=== PATIENT | male | born 1960 | race Caucasian/White ===

== ENCOUNTER 2016-06-01 09:17 | Emergency (ER) | payer BC ==
[~2016-06-01 09:17] MED LIST: /PANT40TA; /PRAV20TA PO; ACET50TA PO; ATOR1TAB21 PO; BABY81CH; CRES20TA PO; DOCU10ELUD PO; GLIP10TA6 PO; GLIP5TAB2 PO; INSUDET SC; KEFL500C; LEVA500T; METF500T PO; MULTCAP PO; MULTLIQ7 PO; MULTTAB4 PO; NASA1SPR; PANCRELIPASE PO; ROPI1TAB PO; TYLE650T30 PO; VITA-130 PO
--- NOTE | 2016-06-01 10:35 | REP ---
Clinical: Trauma. Technique: Frontal view of the chest with multiple views of the right hemithorax. Findings: Frontal view of the chest demonstrates no acute cardiopulmonary process. Multiple views of the right hemithorax demonstrates no obvious acute rib fracture or pathology. Impression: Normal right rib series Signed by Tru Yi MD 06/01/2016 10:26 A
--- NOTE | 2016-06-01 10:47 | EDDOCDS ---
Nurse's Notes [facility] Name: Carlos Maxwell Age: 55 yrs Sex: Male : 1960 Arrival Date: 06/01/2016 Time: 09:17 Bed PR Private MD: Diane Vee DO Diagnosis: Contusion of right front wall of thorax Presentation: 06/01 09:23 Presenting complaint: Patient states: right lower rib pain after falling yesterday. po Denies hitting head. Adult Sepsis Screening: The patient does not have new or worsening altered mentation. Patient's respiratory rate is less than 22. Systolic blood pressure is greater than 100. Patient has a qSOFA score of 0- Negative Sepsis Screen. Suicide/Homicide risk assessment- the patient denies having any suicidal and/or homicidal ideations and does not present with any other emotional, behavioral or mental health complaints. Status: Patient is not a auto specialty services manager or dependent. Transition of care: patient was not received from another setting of care. 09:23 Acuity: FIDELIA Level 4 po 09:23 Method Of Arrival: Walkin/Carried/Asstd po Triage Assessment: 09:31 General: Appears in no apparent distress, Behavior is appropriate for age, cooperative, po pleasant. Pain: Location: right lateral anterior chest Pain currently is 2 out of 10 on a pain scale. At worst was 9 out of 10 on a pain scale. HIV screening NA for this visit Offered previously. Neurological: Level of Consciousness is awake, alert, Oriented to person, place, time. Respiratory: Airway is patent Respiratory effort is even, unlabored, Reports pain with respiration. Derm: Skin is pink, warm & dry. Musculoskeletal: Circulation, motion, and sensation intact. Historical: - Allergies: Celebrex (Hives); Epinephrine (hypotension); - Home Meds: 1. Vitamin C 100 mg Oral tab daily 2. aspirin 81 mg Oral tab 1 tab once daily 3. glipizide 10 mg Oral tab 1 tab once daily 4. Levemir 100 unit/mL subcutaneous soln 40 unit daily 5. multivitamin with minerals oral tab 1 tab daily 6. Protonix 40 mg Oral TbEC 1 tab once daily 7. Requip 1 mg Oral tab 1 tab nightly 8. Crestor 10 mg Oral tab 1 tab once daily 9. Nasacort 55 mcg/actuation Nasal aero 2 spray as needed 10. Pancrelipase 44968 Units 2 cap three times a day - PMHx: CAD; Diabetes - IDDM: controlled; Restlesss Leg Syndrome; - PSHx: Stents, Coronary; pericardial window; cyst removed from right testicle; Pancreojudectomy; - Social history: Smoking status: Patient uses tobacco products, light tobacco smoker. No barriers to communication noted, The patient speaks fluent Icelandic. - Family history: Not pertinent. - : The pt / caregiver states he / she is not on anticoagulants. Home medication list is obtained from the patient. - Exposure Risk Screening:: None identified. Screenin:44 Screening information is obtained from the patient. Fall risk: No risks identified. mlb1 Assistance ADL's: requires no assistance with activities of daily living. Abuse/DV Screen: The patient / caregiver reports he/she is: not in a situation that causes fear, pain or injury. Nutritional screening: No deficits noted. Advance Directives: Currently, there is no health care proxy. home support is adequate. Assessment: 10:44 General: Appears in no apparent distress, comfortable, Behavior is appropriate for age, mlb1 cooperative. Pain: Location: right lateral anterior chest Pain currently is 3 out of 10 on a pain scale. Respiratory: Airway is patent Respiratory effort is even, unlabored. Derm: No deficits noted. Vital Signs: 09:19 BP 128 / 85; Pulse 80; Resp 18; Temp 97.6(O); Pulse Ox 100% on R/A; Weight 63.5 kg (R); sar1 Height 5 ft. 9 in. (175.26 cm) (R); 10:45 BP 125 / 78; Pulse 62; Resp 16; Temp 97.6(TE); Pulse Ox 98% on R/A; Pain 3/10; mlb1 09:19 Body Mass Index 20.67 (63.50 kg, 175.26 cm) [facility] Vitals: 09:19 Log In Time: June 01, 2016 at 09:19. [facility] ED Course: 09:18 Patient visited by Melanie Lovell, Soils Analyst. sar1 09:18 Patient moved to Waiting sar1 09:19 Diane Vee is Private Physician. sar1 09:20 Patient moved to Pre RCE sar1 09:24 Triage Initiated po 09:31 Arm band placed on left wrist. Patient placed in waiting room. po 09:33 Patient visited by Hubert Espinal RN. po 09:52 Patient moved to Triage 1 mlb1 10:06 [facility]utherland [facility] cc10 10:06 Mojgan Puentes MD is Attending Physician. cc10 10:06 Patient visited by Eugenio Sutherland PA-C. cc10 10:06 Patient visited by Eugenio Sutherland PA-C. cc10 10:12 Patient moved to TR1 jml1 10:32 Patient moved to PR2 / 26 mlb1 10:33 [facility] Payment Agreement was scanned into [email or web address] and attached to record. jp5 10:36 Diane Vee is Referral Physician. cc10 10:45 No IV's were initiated during this patient's visit. No procedures done that require mlb1 assistance. 10:46 The patient / caregiver is instructed regarding the plan of care and ED course. mlb1 Order Results: There are currently no results for this order. Outcome: 10:36 Discharge ordered by Provider. cc10 10:45 Discharge Assessment: Patient awake, alert and oriented x 3. No cognitive and/or mlb1 functional deficits noted. Patient verbalized understanding of disposition instructions. patient administered narcotics - no. The following High Risk Discharge criteria are identified: None. Discharged to home ambulatory. Condition: good. Discharge instructions given to patient, Instructed on discharge instructions, follow up and referral plans. medication usage, no driving heavy equipment, Demonstrated understanding of instructions, medications, Pt was receptive of discharge instructions/ teaching. Prescriptions given X 1, Work note provided to patient. No special radiology studies were completed. Property sent home with patient. 10:46 Patient left the ED. mlb1 Signatures: Hubert Espinal,RN RN po Juan Jose Dickson RN RN mlb1 Rufino Cuevas jml1 Eugenio Sutherland PA-C PA-C cc10 Melanie Lovell, Soils Analyst Unit sar1 Lakshmi Irvin jp5 Corrections: (The following items were deleted from the chart) 09:33 09:31 Arm band placed on left wrist. Patient placed in exam room po po MTDD
--- NOTE | 2016-06-01 10:47 | EDDOCDS ---
Physician Documentation [facility] Name: Carlos Maxwell Age: 55 yrs Sex: Male : 1960 Arrival Date: 06/01/2016 Time: 09:17 Bed PR Private MD: Diane Vee DO Disposition: 06/01/16 10:36 Discharged to Home/Self Care. Impression: Contusion of right front wall of thorax. - Condition is Stable. - Discharge Instructions: Chest Contusion. - Prescriptions for Hydrocodone- Acetaminophen 5-325 mg Oral Tablet - take 1 tablet by ORAL route every 6 hours As needed MDD: 4 tabs; 14 tablet. - Medication Reconciliation, Work Release Form - 1 day, Local Pharmacy Hours form. - Follow up: Emergency Department; When: As needed; Reason: Worsening of conditions. Follow up: Diane Vee; When: Call to arrange an appointment; Reason: Wound/Symptom Recheck, Recheck today's complaints, Worsening of conditions, Continuance of care. - Problem is new. - Symptoms are unchanged. Historical: - Allergies: Celebrex (Hives); Epinephrine (hypotension); - Home Meds: 1. Vitamin C 100 mg Oral tab daily 2. aspirin 81 mg Oral tab 1 tab once daily 3. glipizide 10 mg Oral tab 1 tab once daily 4. Levemir 100 unit/mL subcutaneous soln 40 unit daily 5. multivitamin with minerals oral tab 1 tab daily 6. Protonix 40 mg Oral TbEC 1 tab once daily 7. Requip 1 mg Oral tab 1 tab nightly 8. Crestor 10 mg Oral tab 1 tab once daily 9. Nasacort 55 mcg/actuation Nasal aero 2 spray as needed 10. Pancrelipase 86100 Units 2 cap three times a day - PMHx: CAD; Diabetes - IDDM: controlled; Restlesss Leg Syndrome; - PSHx: Stents, Coronary; pericardial window; cyst removed from right testicle; Pancreojudectomy; - Social history: Smoking status: Patient uses tobacco products, light tobacco smoker. No barriers to communication noted, The patient speaks fluent Divehi. - Family history: Not pertinent. - : The pt / caregiver states he / she is not on anticoagulants. Home medication list is obtained from the patient. - Exposure Risk Screening:: None identified. Vital Signs: 06/01 09:19 BP 128 / 85; Pulse 80; Resp 18; Temp 97.6(O); Pulse Ox 100% on R/A; Weight 63.5 kg / sar1 139.99 lbs (R); Height 5 ft. 9 in. (175.26 cm) (R); 10:45 BP 125 / 78; Pulse 62; Resp 16; Temp 97.6(TE); Pulse Ox 98% on R/A; Pain 3/10; mlb1 09:19 Body Mass Index 20.67 (63.50 kg, 175.26 cm) sar1 MDM: 10:11 Rib Unilat W/PA Chest Only Ordered. EDMS 10:33 [facility] [place] Agreement was scanned into [employer] and attached to record. jp5 10:33 Financial registration complete. jp5 Signatures: Dispatcher [employer] EDMS Hubert Espinal,RN Juan Jose Grover RN RN mlb1 Eugenio Sutherland, PA-C PA-C cc10 Lakshmi Irvin jp5 The chart was reviewed and I authenticate all verbal orders and agree with the evaluation and treatment provided.Attachments: 10:33 [facility] [place] Agreement jp5 MTDD
--- NOTE | 2016-06-03 11:48 | EDDOCDS ---
Physician Documentation [facility] Name: Carlos Maxwell Age: 55 yrs Sex: Male : 1960 Arrival Date: 06/01/2016 Time: 09:17 Bed PR Private MD: Diane Vee DO Disposition: 06/01/16 10:36 Discharged to Home/Self Care. Impression: Contusion of right front wall of thorax. - Condition is Stable. - Discharge Instructions: Chest Contusion. - Prescriptions for Hydrocodone- Acetaminophen 5-325 mg Oral Tablet - take 1 tablet by ORAL route every 6 hours As needed MDD: 4 tabs; 14 tablet. - Medication Reconciliation, Work Release Form - 1 day, Local Pharmacy Hours form. - Follow up: Emergency Department; When: As needed; Reason: Worsening of conditions. Follow up: Diane Vee; When: Call to arrange an appointment; Reason: Wound/Symptom Recheck, Recheck today's complaints, Worsening of conditions, Continuance of care. - Problem is new. - Symptoms are unchanged. Historical: - Allergies: Celebrex (Hives); Epinephrine (hypotension); - Home Meds: 1. Vitamin C 100 mg Oral tab daily 2. aspirin 81 mg Oral tab 1 tab once daily 3. glipizide 10 mg Oral tab 1 tab once daily 4. Levemir 100 unit/mL subcutaneous soln 40 unit daily 5. multivitamin with minerals oral tab 1 tab daily 6. Protonix 40 mg Oral TbEC 1 tab once daily 7. Requip 1 mg Oral tab 1 tab nightly 8. Crestor 10 mg Oral tab 1 tab once daily 9. Nasacort 55 mcg/actuation Nasal aero 2 spray as needed 10. Pancrelipase 99816 Units 2 cap three times a day - PMHx: CAD; Diabetes - IDDM: controlled; Restlesss Leg Syndrome; - PSHx: Stents, Coronary; pericardial window; cyst removed from right testicle; Pancreojudectomy; - Social history: Smoking status: Patient uses tobacco products, light tobacco smoker. No barriers to communication noted, The patient speaks fluent Mongolian. - Family history: Not pertinent. - : The pt / caregiver states he / she is not on anticoagulants. Home medication list is obtained from the patient. - Exposure Risk Screening:: None identified. Vital Signs: 06/01 09:19 BP 128 / 85; Pulse 80; Resp 18; Temp 97.6(O); Pulse Ox 100% on R/A; Weight 63.5 kg / sar1 139.99 lbs (R); Height 5 ft. 9 in. (175.26 cm) (R); 10:45 BP 125 / 78; Pulse 62; Resp 16; Temp 97.6(TE); Pulse Ox 98% on R/A; Pain 3/10; mlb1 09:19 Body Mass Index 20.67 (63.50 kg, 175.26 cm) sar1 MDM: 10:11 Rib Unilat W/PA Chest Only Ordered. EDMS 10:33 [facility] [place] Payment Agreement was scanned into [employer] and attached to record. jp5 10:33 Financial registration complete. jp5 11:24 T-Sheet-- Draft Copy was scanned into [employer] and attached to record. se Signatures: Dispatcher [employer] EDMN Hubert Espinal,RN Juan Jose Grover RN RN mlb1 Eugenio Sutherland, PA-C PA-C cc10 Lakshmi Irvin [facility] Mojgan Horvath se The chart was reviewed and I authenticate all verbal orders and agree with the evaluation and treatment provided.Attachments: 10:33 [facility] Payment Agreement jp5 11:24 T-Sheet-- Draft Copy se Chart Complete MTDD
--- NOTE | 2016-06-03 11:48 | EDDOCDS ---
Nurse's Notes [facility] Name: Carlos Maxwell Age: 55 yrs Sex: Male : 1960 Arrival Date: 06/01/2016 Time: 09:17 Bed PR Private MD: Diane Vee DO Diagnosis: Contusion of right front wall of thorax Presentation: 06/01 09:23 Presenting complaint: Patient states: right lower rib pain after falling yesterday. po Denies hitting head. Adult Sepsis Screening: The patient does not have new or worsening altered mentation. Patient's respiratory rate is less than 22. Systolic blood pressure is greater than 100. Patient has a qSOFA score of 0- Negative Sepsis Screen. Suicide/Homicide risk assessment- the patient denies having any suicidal and/or homicidal ideations and does not present with any other emotional, behavioral or mental health complaints. Status: Patient is not a convention services director or dependent. Transition of care: patient was not received from another setting of care. 09:23 Acuity: FIDELIA Level 4 po 09:23 Method Of Arrival: Walkin/Carried/Asstd po Triage Assessment: 09:31 General: Appears in no apparent distress, Behavior is appropriate for age, cooperative, po pleasant. Pain: Location: right lateral anterior chest Pain currently is 2 out of 10 on a pain scale. At worst was 9 out of 10 on a pain scale. HIV screening NA for this visit Offered previously. Neurological: Level of Consciousness is awake, alert, Oriented to person, place, time. Respiratory: Airway is patent Respiratory effort is even, unlabored, Reports pain with respiration. Derm: Skin is pink, warm & dry. Musculoskeletal: Circulation, motion, and sensation intact. Historical: - Allergies: Celebrex (Hives); Epinephrine (hypotension); - Home Meds: 1. Vitamin C 100 mg Oral tab daily 2. aspirin 81 mg Oral tab 1 tab once daily 3. glipizide 10 mg Oral tab 1 tab once daily 4. Levemir 100 unit/mL subcutaneous soln 40 unit daily 5. multivitamin with minerals oral tab 1 tab daily 6. Protonix 40 mg Oral TbEC 1 tab once daily 7. Requip 1 mg Oral tab 1 tab nightly 8. Crestor 10 mg Oral tab 1 tab once daily 9. Nasacort 55 mcg/actuation Nasal aero 2 spray as needed 10. Pancrelipase 86584 Units 2 cap three times a day - PMHx: CAD; Diabetes - IDDM: controlled; Restlesss Leg Syndrome; - PSHx: Stents, Coronary; pericardial window; cyst removed from right testicle; Pancreojudectomy; - Social history: Smoking status: Patient uses tobacco products, light tobacco smoker. No barriers to communication noted, The patient speaks fluent Japanese. - Family history: Not pertinent. - : The pt / caregiver states he / she is not on anticoagulants. Home medication list is obtained from the patient. - Exposure Risk Screening:: None identified. Screenin:44 Screening information is obtained from the patient. Fall risk: No risks identified. mlb1 Assistance ADL's: requires no assistance with activities of daily living. Abuse/DV Screen: The patient / caregiver reports he/she is: not in a situation that causes fear, pain or injury. Nutritional screening: No deficits noted. Advance Directives: Currently, there is no health care proxy. home support is adequate. Assessment: 10:44 General: Appears in no apparent distress, comfortable, Behavior is appropriate for age, mlb1 cooperative. Pain: Location: right lateral anterior chest Pain currently is 3 out of 10 on a pain scale. Respiratory: Airway is patent Respiratory effort is even, unlabored. Derm: No deficits noted. Vital Signs: 09:19 BP 128 / 85; Pulse 80; Resp 18; Temp 97.6(O); Pulse Ox 100% on R/A; Weight 63.5 kg (R); sar1 Height 5 ft. 9 in. (175.26 cm) (R); 10:45 BP 125 / 78; Pulse 62; Resp 16; Temp 97.6(TE); Pulse Ox 98% on R/A; Pain 3/10; mlb1 09:19 Body Mass Index 20.67 (63.50 kg, 175.26 cm) [facility] Vitals: 09:19 Log In Time: June 01, 2016 at 09:19. [facility] ED Course: 09:18 Patient visited by Melanie Lovell, Tank Cooper. sar1 09:18 Patient moved to Waiting sar1 09:19 Diane Vee is Private Physician. sar1 09:20 Patient moved to Pre RCE sar1 09:24 Triage Initiated po 09:31 Arm band placed on left wrist. Patient placed in waiting room. po 09:33 Patient visited by Hubert Espinal RN. po 09:52 Patient moved to Triage 1 mlb1 10:06 Eugenio Sutherland PA-C is PHCP. cc10 10:06 Mojgan Puentes MD is Attending Physician. cc10 10:06 Patient visited by Eugenio Sutherland PA-C. cc10 10:06 Patient visited by Eugenio Sutherland PA-C. cc10 10:12 Patient moved to TR1 jml1 10:32 Patient moved to PR2 / 26 mlb1 10:33 [facility] Payment Agreement was scanned into [employer] and attached to record. jp5 10:36 Diane Vee is Referral Physician. cc10 10:45 No IV's were initiated during this patient's visit. No procedures done that require mlb1 assistance. 10:46 The patient / caregiver is instructed regarding the plan of care and ED course. mlb1 11:00 Rib Unilat W/PA Chest Only Returned. EDMS 11:24 T-Sheet-- Draft Copy was scanned into [employer] and attached to record. [facility] Order Results: Radiology Order: Rib Unilat W/PA Chest Only Test: Rib Unilat W/PA Chest Only REASON FOR EXAMINATION: Trauma; Clinical: Trauma.; ; Technique: Frontal view of the chest with multiple views of the right; hemithorax.; ; Findings:; Frontal view of the chest demonstrates no acute cardiopulmonary process.; Multiple views of the right hemithorax demonstrates no obvious acute rib fracture; or pathology.; ; Impression:; Normal right rib series; ; ; Signed by; Tru Yi MD 06/01/2016 10:26 A; Outcome: 10:36 Discharge ordered by Provider. cc10 10:45 Discharge Assessment: Patient awake, alert and oriented x 3. No cognitive and/or mlb1 functional deficits noted. Patient verbalized understanding of disposition instructions. patient administered narcotics - no. The following High Risk Discharge criteria are identified: None. Discharged to home ambulatory. Condition: good. Discharge instructions given to patient, Instructed on discharge instructions, follow up and referral plans. medication usage, no driving heavy equipment, Demonstrated understanding of instructions, medications, Pt was receptive of discharge instructions/ teaching. Prescriptions given X 1, Work note provided to patient. No special radiology studies were completed. Property sent home with patient. 10:46 Patient left the ED. mlb1 Signatures: Dispatcher [employer] Hubert Negron,RN RN po Juan Jose Dickson RN RN mlb1 Rufino Cuevas jml1 Eugenio Sutherland, FRANKY PALaylaC cc10 Melanie Lovell, Tank Cooper Unit sarLakshmi Christensen 5 Mojgan Horvath Corrections: (The following items were deleted from the chart) 09:33 09:31 Arm band placed on left wrist. Patient placed in exam room po po Chart Complete MTDD
--- NOTE | 2016-06-03 11:48 | EDDOCDS ---
Physician Documentation [facility] Name: Carlos Maxwell Age: 55 yrs Sex: Male : 1960 Arrival Date: 06/01/2016 Time: 09:17 Bed PR Private MD: Diane Vee DO Disposition: 06/01/16 10:36 Discharged to Home/Self Care. Impression: Contusion of right front wall of thorax. - Condition is Stable. - Discharge Instructions: Chest Contusion. - Prescriptions for Hydrocodone- Acetaminophen 5-325 mg Oral Tablet - take 1 tablet by ORAL route every 6 hours As needed MDD: 4 tabs; 14 tablet. - Medication Reconciliation, Work Release Form - 1 day, Local Pharmacy Hours form. - Follow up: Emergency Department; When: As needed; Reason: Worsening of conditions. Follow up: Diane Vee; When: Call to arrange an appointment; Reason: Wound/Symptom Recheck, Recheck today's complaints, Worsening of conditions, Continuance of care. - Problem is new. - Symptoms are unchanged. Historical: - Allergies: Celebrex (Hives); Epinephrine (hypotension); - Home Meds: 1. Vitamin C 100 mg Oral tab daily 2. aspirin 81 mg Oral tab 1 tab once daily 3. glipizide 10 mg Oral tab 1 tab once daily 4. Levemir 100 unit/mL subcutaneous soln 40 unit daily 5. multivitamin with minerals oral tab 1 tab daily 6. Protonix 40 mg Oral TbEC 1 tab once daily 7. Requip 1 mg Oral tab 1 tab nightly 8. Crestor 10 mg Oral tab 1 tab once daily 9. Nasacort 55 mcg/actuation Nasal aero 2 spray as needed 10. Pancrelipase 38095 Units 2 cap three times a day - PMHx: CAD; Diabetes - IDDM: controlled; Restlesss Leg Syndrome; - PSHx: Stents, Coronary; pericardial window; cyst removed from right testicle; Pancreojudectomy; - Social history: Smoking status: Patient uses tobacco products, light tobacco smoker. No barriers to communication noted, The patient speaks fluent Nepali. - Family history: Not pertinent. - : The pt / caregiver states he / she is not on anticoagulants. Home medication list is obtained from the patient. - Exposure Risk Screening:: None identified. Vital Signs: 06/01 09:19 BP 128 / 85; Pulse 80; Resp 18; Temp 97.6(O); Pulse Ox 100% on R/A; Weight 63.5 kg / sar1 139.99 lbs (R); Height 5 ft. 9 in. (175.26 cm) (R); 10:45 BP 125 / 78; Pulse 62; Resp 16; Temp 97.6(TE); Pulse Ox 98% on R/A; Pain 3/10; mlb1 09:19 Body Mass Index 20.67 (63.50 kg, 175.26 cm) sar1 MDM: 10:11 Rib Unilat W/PA Chest Only Ordered. EDMS 10:33 [facility] Payment Agreement was scanned into [employer] and attached to record. jp5 10:33 Financial registration complete. jp5 11:24 T-Sheet-- Draft Copy was scanned into [employer] and attached to record. se Signatures: Dispatcher [employer] EDMD Hubert Espinal,RN Juan Jose Grover RN RN mlb1 Eugenio Sutherland, PA-C PA-C cc10 Lakshmi Irvin [facility] Mojgan Horvath se The chart was reviewed and I authenticate all verbal orders and agree with the evaluation and treatment provided.Attachments: 10:33 [facility] Payment Agreement jp5 11:24 T-Sheet-- Draft Copy se Chart Complete MTDD
== END 2016-06-01 10:48 | disposition home or self-care (01) ==
LOC: M ED 09:17
DX: S20.211A Contusion of right front wall of thorax, initial encounter (principal); W01.10XA Fall on same level from slipping, tripping and stumbling with subsequent striking against unspecified object, initial encounter; Y92.019 Unspecified place in single-family (private) house as the place of occurrence of the external cause; Y93.9 Activity, unspecified; Y99.9 Unspecified external cause status; I25.10 Atherosclerotic heart disease of native coronary artery without angina pectoris; E10.9 Type 1 diabetes mellitus without complications; G25.81 Restless legs syndrome; Z95.5 Presence of coronary angioplasty implant and graft; Z72.0 Tobacco use; Z79.82 Long term (current) use of aspirin; Z79.899 Other long term (current) drug therapy; Z88.6 Allergy status to analgesic agent; Z88.8 Allergy status to other drugs, medicaments and biological substances

== ENCOUNTER → 2016-09-30 | Outpatient (REF) | payer BC | LOC: M LAB REF 12:25 | PROVIDERS: ATTEND Internal Medicine | DX: K86.0 Alcohol-induced chronic pancreatitis (principal); R63.4 Abnormal weight loss ==

== ENCOUNTER → 2018-01-18 | Outpatient (REF) | payer BC ==
[2018-01-18 18:48] LABS: AMYLASE 37 U/L (25-115)
[2018-01-18 18:48] LABS: LIPASE 206 U/L (73-393)
== END ==
LOC: M LAB REF 17:55
DX: R10.12 Left upper quadrant pain (principal)
CPT/HCPCS: 82150

== ENCOUNTER 2018-02-02 15:50 | Emergency (ER) | payer BC ==
[2018-02-02] MEDS: GASTROGRAFIN SOLUTION 30ML PO ×2 (18:05→19:05)
[2018-02-02 18:09] LABS: BASO # 0.1 10^3/uL (0.0-0.2); BASO % 0.8 % (0.0-1.0); EOS # 0.1 10^3/uL (0.0-0.50); HEMATOCRIT 43.8 % (42.0-52.0); IMMATURE GRANULOCYTE % 0.2 % (0-3.0); LYMPH # 2.3 10^3/uL (1.5-4.5); LYMPH % 34.7 % (24.0-44.0); MEAN CORPUSCULAR HEMOGLOBIN 32.8 pg (27.0-33.0); MEAN CORPUSCULAR HGB CONC 34.2 g/dl (32.0-36.5); MEAN CORPUSCULAR VOLUME 95.6 fl (80.0-96.0); MONO # 0.3 10^3/uL (0.0-0.8); NEUTROPHILS # 3.8 10^3/uL (1.8-7.7); NEUTROPHILS % 57.3 % (36.0-66.0); PLATELET COUNT, AUTOMATED 184 10^3/uL (150-450); RED BLOOD COUNT 4.58 10^6/uL (4.30-6.10); WHITE BLOOD COUNT 6.6 10^3/uL (4.0-10.0)
[2018-02-02 18:35] LABS: ALBUMIN 3.8 GM/DL (3.2-5.2); ALBUMIN/GLOBULIN RATIO 1.06 (1.00-1.93); ALKALINE PHOSPHATASE 74 U/L (45-117); ALT/SGPT 23 U/L (12-78); AMYLASE 27 U/L (25-115); ANION GAP 8 MEQ/L (8-16); AST/SGOT 19 U/L (7-37); BILIRUBIN,DIRECT < 0.1 MG/DL (0.0-0.2); BILIRUBIN,TOTAL 0.3 MG/DL (0.2-1.0); BLOOD UREA NITROGEN 10 MG/DL (7-18); CALCIUM LEVEL 9.4 MG/DL (8.5-10.1); CARBON DIOXIDE LEVEL 30 MEQ/L (21-32); CHLORIDE LEVEL 104 MEQ/L (98-107); CREATININE FOR GFR 0.83 MG/DL (0.70-1.30); GLOMERULAR FILTRATION RATE > 60.0 (>56); GLUCOSE, FASTING 167 MG/DL (70-100); LIPASE 152 U/L (73-393); POTASSIUM SERUM 4.2 MEQ/L (3.5-5.1); SODIUM LEVEL 142 MEQ/L (136-145); TOTAL PROTEIN 7.4 GM/DL (6.4-8.2)
[2018-02-02] MEDS: MORPHINE 4 MG/ML 1ML VIAL/SYRINGE (J2270) IV (18:53)
[2018-02-02] MEDS: NS 1,000 ML IV (18:53)
[2018-02-02] MEDS ORDERED: ISOVUE-370 76% 100ML VIAL (Q9967) As Ordered (19:18)
== END 2018-02-02 20:38 | disposition home or self-care (01) ==
LOC: M ED 15:50
DX: K86.1 Other chronic pancreatitis (principal); Z79.899 Other long term (current) drug therapy; Z88.8 Allergy status to other drugs, medicaments and biological substances; F17.210 Nicotine dependence, cigarettes, uncomplicated
CPT/HCPCS: J2270

== ENCOUNTER → 2018-09-02 | Outpatient (REF) | payer BC ==
[~2018-09-02] MED LIST changes: -/PANT40TA; -/PRAV20TA PO; +ACET-683 PO; -ACET50TA PO; -DOCU10ELUD PO; +DOCU5LIQ PO; +HYDR-3715 PO; +MAPA500T17 PO; +PRAV1TAB39 PO; +PROT1TAB2; -VITA-130 PO; +VITA500T PO
[2018-09-02 14:38] LABS: PERCENT SATURATION 26.2 % (19.7-50.0)
[2018-09-04 00:08] LABS: Lyme Disease IgG/IgM Antibodie <0.91 ISR (0.00-0.90); Lyme Disease IgM Ab Quantitati <0.80 index (0.00-0.79)
== END ==
LOC: M LAB REF 12:48
PROVIDERS: ATTEND Internal Medicine
DX: M25.50 Pain in unspecified joint (principal); R53.83 Other fatigue

== ENCOUNTER 2019-01-23 16:31 | Emergency (ER) | payer BC ==
[~2019-01-23] VITALS: Ht 175.3 cm; Wt 56.8 kg
[2019-01-23] MEDS ORDERED: NITR0.4S14 (16:42)
[2019-01-23] MEDS ORDERED: PANCCAP2 (16:42)
[2019-01-23] MEDS ORDERED: LEVE1INJ5 (16:42)
[2019-01-23] MEDS ORDERED: MULTCAP PO (16:42)
[2019-01-23] MEDS ORDERED: NASA1SPR NARES (16:42)
[2019-01-23] MEDS ORDERED: ECOT81TA5 PO (16:42)
[2019-01-23 17:10] LABS: BASO % 0.2 % (0.0-1.0); EOS # 0.2 10^3/uL (0.0-0.50); EOS % 1.1 % (0.0-3.0); HEMATOCRIT 41.6 % (42.0-52.0); HEMOGLOBIN 15.1 g/dl (13.5-17.5); LYMPH # 2.3 10^3/uL (1.5-4.5); LYMPH % 15.1 % (24.0-44.0); MEAN CORPUSCULAR HEMOGLOBIN 34.9 pg (27.0-33.0); MEAN CORPUSCULAR HGB CONC 36.3 g/dl (32.0-36.5); MEAN CORPUSCULAR VOLUME 96.1 fl (80.0-96.0); MONO # 0.8 10^3/uL (0.0-0.8); MONO % 5.1 % (0.0-5.0); NEUTROPHILS % 78.1 % (36.0-66.0); PLATELET COUNT, AUTOMATED 190 10^3/uL (150-450); RED BLOOD COUNT 4.33 10^6/uL (4.30-6.10); WHITE BLOOD COUNT 15.4 10^3/uL (4.0-10.0)
[2019-01-23 17:12] LABS: VENOUS BASE EXCESS 1.7 (-2.0-2.0); VENOUS HCO3 26.5 MEQ/L (23.0-27.0); VENOUS O2 SATURATION 94.2 % (60.0-80.0); VENOUS PARTIAL PRESSURE CO2 42.3 mmHg (38.0-50.0); VENOUS PARTIAL PRESSURE O2 64.2 mmHg (30.0-50.0); VENOUS PH 7.415 UNITS (7.330-7.430); VENOUS STANDARD HCO3 25.9 MEQ/L; VENOUS TOTAL CO2 27.8 MEQ/L (24.0-28.0)
[2019-01-23] MEDS ORDERED: NS 1,000 ML IV ONE ×2 (17:15→18:30)
[2019-01-23 17:47] LABS: HEMOGLOBIN A1c 8.6 %
[2019-01-23 17:49] LABS: OSMOLALITY SERUM 296 MOSM/KG (275-295)
[2019-01-23 17:50] LABS: ACETONE/KETONE 1.87 MG/DL (<2.81); ALBUMIN 3.6 GM/DL (3.2-5.2); ALT/SGPT 26 U/L (12-78); BILIRUBIN,DIRECT < 0.1 MG/DL (0.0-0.2); BILIRUBIN,TOTAL 0.3 MG/DL (0.2-1.0); BLOOD UREA NITROGEN 20 MG/DL (7-18); CALCIUM LEVEL 8.7 MG/DL (8.5-10.1); CARBON DIOXIDE LEVEL 28 MEQ/L (21-32); CHLORIDE LEVEL 103 MEQ/L (98-107); CK-MB VALUE MASS 1.5 NG/ML (<3.6); CPK CREATINE PHOSPHOKINASE 72 U/L (39-308); CREATININE FOR GFR 0.91 MG/DL (0.70-1.30); ETHYL ALCOHOL (ETHANOL) < 0.003 % (0.000-0.010); GLOMERULAR FILTRATION RATE > 60.0 (>56); GLUCOSE, FASTING 366 MG/DL (70-100); LIPASE 139 U/L (73-393); MAGNESIUM LEVEL 1.8 MG/DL (1.8-2.4); MB/CK RELATIVE INDEX 2.08 (< OR =4); POTASSIUM SERUM 4.1 MEQ/L (3.5-5.1); SODIUM LEVEL 136 MEQ/L (136-145); TOTAL PROTEIN 6.2 GM/DL (6.4-8.2); TROPONIN I < 0.02 NG/ML (< 0.10)
[2019-01-23 18:28] LABS: AMPHETAMINES LEVEL URINE NEGATIVE (NEGATIVE); BARBITURATES URINE NEGATIVE (NEGATIVE); BENZODIAZEPINES URINE NEGATIVE (NEGATIVE); CANNABINOIDS URINE NEGATIVE (NEGATIVE); COCAINE METABOLITE URINE NEGATIVE (NEGATIVE); METHADONE URINE NEGATIVE (NEGATIVE); OPIATES URINE NEGATIVE (NEGATIVE); PHENCYCLIDINE URINE NEGATIVE (NEGATIVE)
[2019-01-23] MEDS ORDERED: ISOVUE-370 76% 100ML VIAL (Q9967) As Ordered ONE (18:33)
--- NOTE | 2019-01-23 19:34 | REPVR ---
EXAM: CT Abdomen and Pelvis With Contrast EXAM DATE/TIME: 01/23/2019 6:46 PM CLINICAL HISTORY: 58 years old, male; Abdominal pain; Generalized; Additional info: Abd pain TECHNIQUE: Imaging protocol: Computed tomography images of the abdomen and pelvis with intravenous contrast. Radiation optimization: All CT scans at this facility use at least one of these dose optimization techniques: automated exposure control; mA and/or kV adjustment per patient size (includes targeted exams where dose is matched to clinical indication); or iterative reconstruction. Contrast material: ISOVUE 370; Contrast volume: 100 ml; Contrast route: IV; COMPARISON: CT ABD/PEL W/IV ORAL CONTRAS 02/02/2018 7:18 PM FINDINGS: Lungs: Mild paraseptal emphysematous changes right lower lobe. Liver: There is a diffuse decrease in hepatic parenchymal density, consistent with fatty infiltration. Gallbladder and bile ducts: There has been a cholecystectomy. Pancreas: Pancreatic calcifications again redemonstrated consistent with chronic pancreatitis. Pancreatic atrophy with mild dilatation of the pancreatic duct measuring 4.4 mm in the pancreatic body. Spleen: Normal. No splenomegaly. Adrenals: Normal. No mass. Kidneys and ureters: Horseshoe kidney. Stomach and bowel: Moderate diverticulosis is present in the distal colon. No diverticulitis. There is increased feces throughout the colon consistent with constipation. Appendix: No evidence of appendicitis. Intraperitoneal space: Normal. No free air. No significant fluid collection. Vasculature: The aorta demonstrates moderate atherosclerotic calcification. Focal bulge in the mid abdominal aorta measures 2.6 cm. No columba aneurysm. Lymph nodes: Normal. No enlarged lymph nodes. Bladder: Unremarkable as visualized. Reproductive: The prostate gland demonstrates moderate hyperplasia. Bones/joints: Mild central spinal stenosis at L3-4 and L4-5. Osteoporosis. Soft tissues: Unremarkable. IMPRESSION: 1. Horseshoe kidney. 2. There has been a cholecystectomy. 3. Moderate diverticulosis is present in the distal colon. No diverticulitis. 4. There is a diffuse decrease in hepatic parenchymal density, consistent with fatty infiltration. 5. Pancreatic calcifications again redemonstrated consistent with chronic pancreatitis. Pancreatic atrophy with mild dilatation of the pancreatic duct measuring 4.4 mm in the pancreatic body. 6. There is increased feces throughout the colon consistent with constipation. 7. Moderate prostatic hyperplasia. Electronically signed by: Richi Del Rosario On 01/23/2019 19:34:07 PM
[2019-01-23 20:39] VITALS: BP 137/69
--- NOTE | 2019-01-24 20:13 | ECGEPIP ---
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
--- NOTE | 2019-01-25 08:53 | REP ---
Clinical: Diabetic ketoacidosis . Comparison: 06/01/2016 . Findings: The mediastinum and cardiac silhouette are stable and within normal limits for portable technique. The lung lechuga are clear without acute consolidation, effusion, or pneumothorax. Skeletal structures are intact. Impression: No acute cardiopulmonary process appreciated. Electronically Signed by Tru Yi MD 01/24/2019 01:41 A
== END 2019-01-23 20:42 | disposition home or self-care (01) ==
LOC: M ED 16:31
DX: E11.65 Type 2 diabetes mellitus with hyperglycemia (principal); Z79.899 Other long term (current) drug therapy; Z79.82 Long term (current) use of aspirin; Z79.4 Long term (current) use of insulin; Z88.4 Allergy status to anesthetic agent; F17.210 Nicotine dependence, cigarettes, uncomplicated
CPT/HCPCS: 71045; 74177; 80048; 80076; 80307; 81001; 82010; 82550; 82553; 82803; 83036; 83690; 83735; 83930; 84484; 85025; 87088; 87186; 93005; 93041; 96360; 96361; 99285; G0480; Q9967

== ENCOUNTER → 2019-02-02 | Outpatient (REF) | payer BC ==
[~2019-02-02] MED LIST changes: +ECOT81TA5 PO; +LEVE1INJ5; +NASA1SPR NARES; +NITR0.4S14; +PANCCAP2
== END ==
LOC: M LAB REF 17:26
PROVIDERS: ATTEND Internal Medicine
DX: E11.65 Type 2 diabetes mellitus with hyperglycemia (principal); N39.0 Urinary tract infection, site not specified

== ENCOUNTER 2019-05-17 20:28 | Emergency (ER) | payer BC ==
[~2019-05-17] VITALS: Ht 175.3 cm; Wt 56.4 kg
[2019-05-17] MEDS ORDERED: NITROGLYCERIN 0.4 MG SUBL TABLET SL PRN (20:45)
[2019-05-17] MEDS ORDERED: ASPIRIN 81 MG CHEW TABLET PO ONE (20:45)
[2019-05-17 21:02] LABS: BASO % 0.4 % (0.0-1.0); EOS # 0.2 10^3/uL (0.0-0.5); HEMATOCRIT 44.1 % (42.0-52.0); HEMOGLOBIN 14.7 g/dl (13.5-17.5); LYMPH # 2.3 10^3/uL (1.5-5.0); LYMPH % 29.8 % (24.0-44.0); MEAN CORPUSCULAR HEMOGLOBIN 33.2 pg (27.0-33.0); MEAN CORPUSCULAR HGB CONC 33.3 g/dl (32.0-36.5); MEAN CORPUSCULAR VOLUME 99.5 fl (80.0-96.0); MONO # 0.6 10^3/uL (0.0-0.8); MONO % 8.3 % (0.0-5.0); NEUTROPHILS # 4.6 10^3/uL (1.5-8.5); NEUTROPHILS % 59.4 % (36.0-66.0); PLATELET COUNT, AUTOMATED 188 10^3/uL (150-450); RED BLOOD COUNT 4.43 10^6/uL (4.30-6.10); WHITE BLOOD COUNT 7.7 10^3/uL (4.0-10.0)
[2019-05-17 21:41] LABS: ALBUMIN 3.5 GM/DL (3.2-5.2); ALT/SGPT 19 U/L (12-78); BILIRUBIN,DIRECT < 0.1 MG/DL (0.0-0.2); BILIRUBIN,TOTAL 0.3 MG/DL (0.2-1.0); BLOOD UREA NITROGEN 12 MG/DL (7-18); CALCIUM LEVEL 9.3 MG/DL (8.5-10.1); CARBON DIOXIDE LEVEL 32 MEQ/L (21-32); CHLORIDE LEVEL 105 MEQ/L (98-107); CK-MB VALUE MASS 1.1 NG/ML (<3.6); CPK CREATINE PHOSPHOKINASE 41 U/L (39-308); GLOMERULAR FILTRATION RATE > 60.0 (>56); GLUCOSE, FASTING 172 MG/DL (70-100); LIPASE 105 U/L (73-393); MB/CK RELATIVE INDEX 2.68 (< OR =4); POTASSIUM SERUM 3.7 MEQ/L (3.5-5.1); SODIUM LEVEL 143 MEQ/L (136-145); TOTAL PROTEIN 6.6 GM/DL (6.4-8.2); TROPONIN I < 0.02 NG/ML (< 0.10)
[2019-05-17] MEDS: GASTROGRAFIN SOLUTION 30ML PO SCH ×2 (22:14→22:48)
--- NOTE | 2019-05-18 00:49 | REPVR ---
PROCEDURE INFORMATION: Exam: CT Abdomen And Pelvis With Contrast Exam date and time: 05/17/2019 9:48 PM Age: 58 years old Clinical indication: Upper abdominal pain. TECHNIQUE: Imaging protocol: Computed tomography of the abdomen and pelvis with intravenous contrast. Radiation optimization: All CT scans at this facility use at least one of these dose optimization techniques: automated exposure control; mA and/or kV adjustment per patient size (includes targeted exams where dose is matched to clinical indication); or iterative reconstruction. Contrast material: ISO; Contrast volume: 100 ml; Contrast route: AC; Other contrast: Route: Oral, Material: gastro, Volume: 600ml; COMPARISON: CT ABD/PEL W/IV CONTRAST ONLY 01/23/2019 6:46 PM FINDINGS: Lungs: There is mild dependent atelectasis in both lower lobes. Heart: No cardiomegaly. No pericardial effusion. Liver: The attenuation of the liver is lower compared to the spleen, which can be seen with fatty liver infiltration. No liver lesion is seen. The contour of the liver is smooth. No hepatomegaly is noted. Gallbladder and bile ducts: There has been a cholecystectomy. There is no fluid collection in the gallbladder fossa. No dilation of the bile ducts is noted. Pancreas: There are several calcifications in the pancreas, which are the sequela of chronic pancreatitis. No inflammatory fat stranding or fluid is noted around the pancreas to suggest acute pancreatitis. No dilation of the main pancreatic duct or mass is noted. Spleen: Normal. No splenomegaly. Adrenals: Normal. No mass. Kidneys and ureters: There is a horseshoe kidney. No renal lesion is identified. No calculi are seen in the kidneys or ureters. There is no hydronephrosis or hydroureter. There are no wedge-shaped areas of low attenuation in the kidneys to suggest pyelonephritis. There is no renal abscess or perinephric fluid collection. Stomach and bowel: There is duodenal and colonic diverticulosis without evidence for diverticulitis. There is no evidence for a bowel obstruction, colitis, pneumatosis intestinalis, intussusception, volvulus, or perforated viscus. Appendix: Normal. No evidence for appendicitis. Intraperitoneal space: Unremarkable. No fluid collection. No free air. Retroperitoneal space: Unremarkable. No fluid collection. No mass. Vasculature: The abdominal aorta is ectatic and measures 2.6 cm x 2.3 cm. The right common iliac artery is diffusely ectatic and measures the 2.2 cm in diameter. The right internal iliac artery is also ectatic and measures 1.3 cm in diameter. These measurements are similar in appearance compared to the prior CT on 01/23/2019. No ruptured aneurysm is noted. 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 The common, external, and right internal iliac arteries are patent. The 2 main right renal arteries, 2 main left renal arteries, celiac artery, superior mesenteric artery, inferior mesenteric artery, and common femoral arteries are patent. The portal veins, splenic vein, superior mesenteric vein, inferior mesenteric vein, and renal veins are patent. Lymph nodes: Normal. No enlarged lymph nodes. Bladder: Unremarkable. No calculi or masses are noted in the bladder. Reproductive: The prostate gland is enlarged. The seminal vesicles are unremarkable. Bones/joints: There is no acute fracture. There is a chronic left L5 pars defect, which is unchanged compared to the prior CT on 01/23/2019. The right L5 pars interarticularis is intact. There are degenerative changes in the lumbar spine. There is moderate osteoarthritis of both hip joints that is similar in appearance compared to the prior CT on 01/23/2019. No suspicious osteolytic or osteoblastic lesion is noted. The bones have a demineralized appearance. Soft tissues: Unremarkable. No hernia. IMPRESSION: 1. No acute findings in the abdomen or pelvis. 2. Several calcifications in the pancreas, which are the sequela of chronic pancreatitis. 3. 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 4. Duodenal and colonic diverticulosis without evidence for diverticulitis. 5. Horseshoe kidney. 6. Enlarged prostate. 7. Chronic left L5 pars defect, which is unchanged compared to the prior CT on 01/23/2019. Electronically signed by: Angel Maria On 05/18/2019 00:49:09 AM
[2019-05-18 03:23] LABS: CK-MB VALUE MASS < 1.0 NG/ML (<3.6); CPK CREATINE PHOSPHOKINASE 39 U/L (39-308); MB/CK RELATIVE INDEX 2.56 (< OR =4); TROPONIN I < 0.02 NG/ML (< 0.10)
[2019-05-18 05:00] VITALS: BP 124/78
--- NOTE | 2019-05-18 08:10 | REP ---
Single view chest: 05/17/2019. Indication: Chest pain. Comparison: 01/23/2019. Findings: The lungs are clear. There is no pleural effusion or pneumothorax. The cardiomediastinal silhouette is unremarkable with exception of aortic atherosclerotic disease. Impression: No acute cardiopulmonary process. Electronically Signed by Andrew Rdz DO 05/18/2019 08:01 A
--- NOTE | 2019-05-18 08:11 | ECGEPIP ---
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
--- NOTE | 2019-05-18 08:19 | ECGEPIP ---
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
== END 2019-05-18 05:15 | disposition home or self-care (01) ==
LOC: M ED 20:28
DX: R07.9 Chest pain, unspecified (principal); I10 Essential (primary) hypertension; I25.10 Atherosclerotic heart disease of native coronary artery without angina pectoris; Z79.899 Other long term (current) drug therapy; Z79.82 Long term (current) use of aspirin; F17.210 Nicotine dependence, cigarettes, uncomplicated
CPT/HCPCS: 36415; 71045; 74177; 80048; 80076; 82550; 82553; 83690; 84484; 85025; 93005; 93041; 94760; 99285; G0103; Q9963

== ENCOUNTER → 2019-07-05 | Outpatient (CLI) | payer BC ==
--- NOTE | 2019-07-06 04:49 | REP ---
Clinical: Symptoms related to atherosclerotic disease Technique: Real time dao scale and color Doppler evaluation of the bilateral lower extremity arterial vasculature using linear high frequency transducer. Findings: Dao scale and color images demonstrate mild to moderate amounts of atheromatous plaquing with scattered areas of stenosis noted bilaterally including within the right external iliac artery and right mid superficial femoral artery. Incidental right common iliac artery aneurysm measures 2.5 cm diameter. Doppler interrogation demonstrates primarily bilateral triphasic arterial wave patterns. Peak systolic velocities (cm/sec) RIGHT LEFT Common femoral artery 30.7 (biphasic) 44.2 Profunda femoris 49.6 (biphasic) 92.1 SFA (proximal) 66.3 108 SFA (mid) 118 128 SFA (distal) 91.9 123 Popliteal artery 64.1 63.4 BRISSA (prox.) 45.0 29.5 (biphasic) Tibioperoneal trunk 61.5 60.0 HISTORIC INTERPRETER (prox.) 34.8 32.9 HISTORIC INTERPRETER (distal) 24.1(monophasic) 52.9 BRISSA (distal) 45.2( monophasic) 58.0 Impression: 1. Atheromatous changes with few scattered bilateral areas of narrowing slash stenosis. 2. 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 Electronically Signed by Tru Yi MD 07/06/2019 04:41 A
== END ==
LOC: M RAD 13:54
PROVIDERS: ATTEND Surgery Vascular Surgery
DX: I70.213 Atherosclerosis of native arteries of extremities with intermittent claudication, bilateral legs (principal)

== ENCOUNTER → 2019-11-27 | Outpatient (CLI) | payer BC ==
[~2019-11-27] MED LIST changes: +INSUHUMDS SC; +IRON27TA2 PO; +PANT40TA3 PO; -ROPI1TAB PO; +ROPI1TAB3 PO; +VITA-243 PO; -VITA500T PO
== END ==
LOC: M LABSMTC 09:49
PROVIDERS: ATTEND Anesthesiology
DX: Z01.818 Encounter for other preprocedural examination (principal); Z11.59 Encounter for screening for other viral diseases
CPT/HCPCS: C9803; U0003

== ENCOUNTER → 2020-01-11 | Outpatient (CLI) | payer BC ==
[~2020-01-11] MED LIST changes: +PANT40TA29 PO; -PANT40TA3 PO
[2020-02-11 10:18] LABS: HEMATOCRIT 40.3 % (42.0-52.0); HEMOGLOBIN 13.9 g/dl (13.5-17.5); MEAN CORPUSCULAR HEMOGLOBIN 33.7 pg (27.0-33.0); MEAN CORPUSCULAR HGB CONC 34.5 g/dl (32.0-36.5); MEAN CORPUSCULAR VOLUME 97.6 fl (80.0-96.0); PLATELET COUNT, AUTOMATED 224 10^3/uL (150-450); RED BLOOD COUNT 4.13 10^6/uL (4.30-6.10); WHITE BLOOD COUNT 7.7 10^3/uL (4.0-10.0)
[2020-02-11 10:19] LABS: INR 1.07; PROTHROMBIN TIME 14.1 SECONDS (11.8-14.0)
--- NOTE | 2020-02-21 09:24 | REP ---
CHEST X-RAY: 2-VIEWS COMPARISON: 2-views of the chest are performed and compared to prior studies, most recently 05/17/19. FINDINGS: There is no acute infiltrate or pulmonary edema. The heart is normal in size. There is mild calcification of the thoracic aorta. The mediastinal silhouette is unremarkable and unchanged. There are minor degenerative changes of the spine. IMPRESSION: No active pulmonary disease. MTDD
[2020-02-24 21:30] LABS: ALBUMIN 3.6 GM/DL (3.2-5.2); ALT/SGPT 22 U/L (12-78); BILIRUBIN,TOTAL 0.3 MG/DL (0.2-1.0); BLOOD UREA NITROGEN 17 MG/DL (7-18); CALCIUM LEVEL 8.8 MG/DL (8.5-10.1); CARBON DIOXIDE LEVEL 26 MEQ/L (21-32); CHLORIDE LEVEL 105 MEQ/L (98-107); GLOMERULAR FILTRATION RATE > 60.0 (>56); GLUCOSE, FASTING 120 MG/DL (70-100); POTASSIUM SERUM 4.5 MEQ/L (3.5-5.1); SODIUM LEVEL 137 MEQ/L (136-145); TOTAL PROTEIN 6.6 GM/DL (6.4-8.2)
[2020-04-03 13:59] LABS: ERYTHROCYTE SEDIMENTATION RATE 5 mm/hr (0-20)
== END ==
LOC: M LAB 15:15
PROVIDERS: ATTEND Orthopaedic Surgery
DX: Z01.818 Encounter for other preprocedural examination (principal); M16.11 Unilateral primary osteoarthritis, right hip; E11.9 Type 2 diabetes mellitus without complications; K92.9 Disease of digestive system, unspecified

== ENCOUNTER 2020-01-13 07:20 | Inpatient (IN) | payer BC ==
[~2020-01-13 07:20] MED LIST changes: +ceFAZolin 2 GM/D5W 50 ML IV BAG (J0690 PER 500MG) As Ordered ONE
[2020-01-13] MEDS ORDERED: ceFAZolin 1GM VIAL (J0690 PER 500MG) As Ordered ONE (07:24)
[2020-01-13] MEDS ORDERED: CLINDAMYCIN 900 MG/50 ML PREMIX BAG As Ordered ONE (07:24)
[2020-01-13] MEDS ORDERED: CLINDAMYCIN 600 MG/50 ML PREMIX BAG As Ordered ONE (07:24)
[2020-01-13] MEDS ORDERED: EPINEPHrine INJ 1 MG/ML 1ML AMP As Ordered ONE (07:26)
[2020-01-13] MEDS ORDERED: TRANEXAMIC ACID 100 MG/ML 10ML VIAL As Ordered ONE (07:26)
[2020-01-13] MEDS ORDERED: BUPIVACAINE HCL 0.25% 30ML VIAL As Ordered ONE (07:26)
[2020-01-13] MEDS ORDERED: BUPIVACAINE LIPOSOME/PF 1.3% 20ML VIAL (13.3MG/ML)(EXPAREL)(C9290 PER1MG) As Ordered ONE (07:27)
[2020-01-13] MEDS ORDERED: PHENYLephrine HCL 500 MCG/5 ML (100MCG/ML) SYRINGE (J2370) As Ordered ONE ×2 (08:10→08:53)
[2020-01-13] MEDS ORDERED: fentaNYL 100 MCG/2 ML INJECTION (J3010) As Ordered ONE (08:10)
[2020-01-13] MEDS ORDERED: MIDAZOLAM INJ 2MG/2ML VIAL (J2250 PER 1MG) As Ordered ONE (08:10)
[2020-01-13] MEDS ORDERED: LIDOCAINE 2% 100MG/5ML SDV (FOR ANES.) As Ordered ONE (08:10)
[2020-01-13] MEDS ORDERED: propofoL 200 MG/20 ML VIAL As Ordered ONE (08:10)
[2020-01-13] MEDS ORDERED: ONDANSETRON 4MG/2ML VIAL As Ordered ONE ×2 (08:25→15:20)
[2020-01-13] MEDS ORDERED: ACETAMINOPHEN 1000MG 100ML IV BTL (OFIRMEV) (J0131 PER 10MG) As Ordered ONE (08:26)
[2020-01-13] MEDS ORDERED: ePHEDrine SULFATE 25 MG/5 ML(5MG/ML) SYRINGE As Ordered ONE (08:27)
[2020-01-13] MEDS ORDERED: DESFLURANE 240 ML INHALANT As Ordered ONE ×2 (08:34→08:35)
[2020-01-13] MEDS ORDERED: buPROPion **XL** TABLET 150MG (WELLBUTRIN XL) ONE (09:00)
[2020-01-13] MEDS ORDERED: PERCOCET 5MG/325MG TAB As Ordered ONE ×3 (10:57→21:31)
[2020-01-13] MEDS ORDERED: ceFAZolin 2 GM/D5W 50 ML IV BAG (J0690 PER 500MG) As Ordered ONE (15:20)
[2020-01-13] MEDS ORDERED: MORPHINE 4 MG/ML 1ML VIAL/SYRINGE (J2270) As Ordered ONE ×2 (16:21→18:12)
[2020-01-13] MEDS ORDERED: ACETAMINOPHEN TAB 650MG DOSE (2X325MG) As Ordered ONE (17:06)
[2020-01-13] MEDS ORDERED: PANTOPRAZOLE 40MG TAB (PROTONIX) As Ordered ONE (21:30)
[2020-01-13] MEDS ORDERED: rOPINIRole 1MG TAB As Ordered ONE (21:30)
[2020-01-13] MEDS ORDERED: LEVEMIR (INSULIN DETEMIR) 1 UNITS/0.01ML As Ordered ONE (21:32)
[2020-01-14] MEDS ORDERED: ceFAZolin 2 GM/D5W 50 ML IV BAG (J0690 PER 500MG) As Ordered ONE (00:24)
[2020-01-14] MEDS ORDERED: PERCOCET 5MG/325MG TAB As Ordered ONE ×3 (05:46→18:05)
[2020-01-14] MEDS ORDERED: ATORVASTATIN 20 MG TAB As Ordered ONE (10:43)
[2020-01-14] MEDS ORDERED: MULTIVITAMINS/MINERALS THERAP 1 TAB As Ordered ONE (10:44)
[2020-01-14] MEDS ORDERED: PANTOPRAZOLE 40MG TAB (PROTONIX) As Ordered ONE ×2 (10:44→20:42)
[2020-01-14] MEDS ORDERED: buPROPion **XL** TABLET 150MG (WELLBUTRIN XL) As Ordered ONE (10:45)
[2020-01-14] MEDS ORDERED: rOPINIRole 1MG TAB As Ordered ONE ×2 (10:45→20:41)
[2020-01-14] MEDS ORDERED: MIRALAX *UNIT DOSE* 17GM PACKET As Ordered ONE (10:45)
[2020-01-14] MEDS ORDERED: buPROPion **SR TABLET** (ZYBAN) 150MG ONE (13:00)
[2020-01-14] MEDS ORDERED: RIVAROXABAN 10 MG TAB (XARELTO) As Ordered ONE (18:05)
[2020-01-14] MEDS ORDERED: HumaLOG INSULIN (NovoLOG) PER UNIT As Ordered ONE (18:05)
[2020-01-15] MEDS ORDERED: PERCOCET 5MG/325MG TAB As Ordered ONE ×2 (05:04→11:36)
[2020-01-15] MEDS ORDERED: ATORVASTATIN 20 MG TAB As Ordered ONE (08:12)
[2020-01-15] MEDS ORDERED: PANTOPRAZOLE 40MG TAB (PROTONIX) As Ordered ONE (08:14)
[2020-01-15] MEDS ORDERED: HumaLOG INSULIN (NovoLOG) PER UNIT As Ordered ONE (08:14)
[2020-01-15] MEDS ORDERED: MULTIVITAMINS/MINERALS THERAP 1 TAB As Ordered ONE (08:14)
[2020-01-15] MEDS ORDERED: rOPINIRole 1MG TAB As Ordered ONE (08:15)
[2020-01-15] MEDS ORDERED: MIRALAX *UNIT DOSE* 17GM PACKET As Ordered ONE (08:15)
--- NOTE | 2020-02-13 14:47 | IPN ---
DATE: 01/13/2020 Patient is seen and examined. He wishes to go ahead with a right total hip arthroplasty. Preoperative medical clearance was obtained. He understands the nature of this, the risks of bleeding, infection, damage to nerves or vessels, persistent pain, wear, loosening, dislocation, leg length inequality, blood clots, medical problems, , among others. He is a fairly unhealthy person with vascular issues and is followed by cardiology and vascular surgery. He knows he is at increased risk as a result of these medical issues. He wishes to proceed with a right total hip arthroplasty. We are anticipating using a [id number]. STERLING
--- NOTE | 2020-02-17 13:34 | RO ---
Date of Operation: 01/13/2020 Pre-op diagnosis: Right hip osteoarthritis. Post-op diagnosis: Right hip osteoarthritis. Procedure: Right total hip arthroplasty using a [employer] size 6 high-offset +1.5, 36 ceramic head with a 54 cup and poly liner. SURGEON: Waylon Sadler M.D. TAILING HAND: Emely Carnes ANESTHESIA: Spinal. ESTIMATED BLOOD LOSS: 200. COMPLICATIONS: None. INDICATIONS: This is a 59-year-old gentleman with multiple medical issues who has had severe right hip pain and AVN and arthritis. He wished to go ahead with a right total hip arthroplasty. He understood the nature and the risks associated with this. We discussed various different options for arthroplasty and I talked to him about using ceramic of some sort, whether it is [id number] or twypfqo-kl-[id number]. We talked about the different risks and benefits with the risks of [id number] being increased risk of fracture and squeaking, but decided that the decision could be made intraoperatively. He is a very slender man. He is cleared medically. PROCEDURE: The patient was taken to the operating room and placed in the left lateral decubitus position on the [place] positioner. All areas were padded appropriately. The right hip was prepped and draped in the usual sterile fashion. Timeout was performed. A longitudinal incision was made over the lateral aspect of the hip. Sharp dissection was carried down through subcutaneous tissue. I then divided the anterior 40% or so of the abductor off as I gradually externally rotated the femur and dissected the neck up to the labrum. We then dislocated the hip without difficulty and put the leg in the bag. I used the canal initiating reamer, the canal finding reamer, the lateralizing reamer, followed by sequentially reamed up to a size 5, which is what we had preoperatively templated for, and good bony purchase was noted. I made the neck cut and removed the head. He did have severe arthritis and evidence of AVN with some collapse of the apex of the femoral head. The acetabulum was then prepared. Anterior and posterior retractors were placed. Soft tissue was removed from around the acetabulum and controlled the hemostasis with the cautery. The reaming then was initiated and I was able to ream up to a size 53 reamer and got good concentric reaming, good bleeding bone. I was able to medialize some as well. It looked like the anterior wall was too thin to enlarge the reamers, so I selected the 54 cup and impacted this in place in the appropriate amount of anteversion, horizontal tilt. I matched his acetabulum. This had an excellent fit and fill. Trial liner was inserted and then directed our attention to the femur. I sequentially broached up to a size 5, but this seemed to countersink some, so I was able to ream up to a size 6 with the reamer and impacted in a size 6 broach, which had an excellent fit and fill and was solid. I then did a variety of different head and neck combinations, include standard and high-offset, 1.5 neck length, and 5 neck length. I elected to go with the high-offset 1.5, which had the best soft tissue balance. With extreme external rotation and extension, it barely touched the acetabular component, and I was a little bit concerned about impingement in this area. But, with the high offset, I was pretty satisfied with the position. He had excellent stability in flexion, internal rotation. With extension and external rotation, it was stable. It was not able to cam out. I did elect to go with a polyethylene liner right at this point. The trial components were removed. The polyethylene liner was impacted into place after I irrigated and dried the surfaces. I had irrigated multiple times prior to this, including prior to placement of the acetabular component. I then impacted in the size 6 high-offset stem, which had an excellent fit and fill. I tried the taper and placed the +1.5 ceramic ball 36 and then reduced the hip. I put the hip through a range of motion and again, I was very pleased with the stability and range of motion of the hip. The soft tissue balance was appropriate. He was actually long on this leg preoperatively by a centimeter or so, so I was careful not to try to lengthen him anymore. The deep tissues were irrigated. I placed the TXA and Exparel in the deep tissues. I repaired the minimus with #1 Vicryl sutures and the adductor with #1 Vicryl sutures through several bony holes, irrigated. I repaired the fascia rebeca with #1 Vicryl sutures and running Stratafix. I closed the SQ with 2-0 Vicryl and the skin with valencia. Sterile dressings were applied. The therapeutic assistant was instrumental in holding retractors, assisting in reducing and dislocating the hip, and assisting in wound closure. He was taken to the recovery room in stable condition. COMPLICATIONS: There were no known complications. PLAN: The plan will be routine postoperative. STERLING
--- NOTE | 2020-02-21 09:25 | REP ---
RIGHT HIP X-RAY POSTOP: FINDINGS: 2-views of the right hip performed. There is placement of total hip prosthesis, which appears to be in good position. The structures are well-aligned. The osseous structures are intact. Metallic skin valencia are seen laterally. MTDD
[2020-03-11 18:14] LABS: HEMATOCRIT 39.7 % (42.0-52.0); HEMOGLOBIN 13.3 g/dl (13.5-17.5); MEAN CORPUSCULAR HEMOGLOBIN 32.6 pg (27.0-33.0); MEAN CORPUSCULAR HGB CONC 33.5 g/dl (32.0-36.5); MEAN CORPUSCULAR VOLUME 97.3 fl (80.0-96.0); PLATELET COUNT, AUTOMATED 206 10^3/uL (150-450); RED BLOOD COUNT 4.08 10^6/uL (4.30-6.10); WHITE BLOOD COUNT 12.1 10^3/uL (4.0-10.0)
[2020-03-26 13:42] LABS: HEMATOCRIT 35.3 % (42.0-52.0); MEAN CORPUSCULAR HEMOGLOBIN 32.8 pg (27.0-33.0); MEAN CORPUSCULAR VOLUME 96.4 fl (80.0-96.0); PLATELET COUNT, AUTOMATED 173 10^3/uL (150-450); RED BLOOD COUNT 3.66 10^6/uL (4.30-6.10); WHITE BLOOD COUNT 10.4 10^3/uL (4.0-10.0)
[2020-04-01 07:11] LABS: ALBUMIN 2.7 GM/DL (3.2-5.2); ALT/SGPT 13 U/L (12-78); BILIRUBIN,TOTAL 0.4 MG/DL (0.2-1.0); BLOOD UREA NITROGEN 12 MG/DL (7-18); CALCIUM LEVEL 8.5 MG/DL (8.5-10.1); CARBON DIOXIDE LEVEL 32 MEQ/L (21-32); CHLORIDE LEVEL 100 MEQ/L (98-107); GLOMERULAR FILTRATION RATE > 60.0 (>56); GLUCOSE, FASTING 211 MG/DL (70-100); HEMOGLOBIN A1c 6.6 %; POTASSIUM SERUM 4.4 MEQ/L (3.5-5.1); SODIUM LEVEL 137 MEQ/L (136-145); TOTAL PROTEIN 5.5 GM/DL (6.4-8.2)
[2020-04-08 10:33] LABS: ALBUMIN 3.3 GM/DL (3.2-5.2); ALT/SGPT 17 U/L (12-78); BILIRUBIN,TOTAL 0.4 MG/DL (0.2-1.0); BLOOD UREA NITROGEN 11 MG/DL (7-18); CALCIUM LEVEL 8.9 MG/DL (8.5-10.1); CARBON DIOXIDE LEVEL 32 MEQ/L (21-32); CHLORIDE LEVEL 102 MEQ/L (98-107); CREATININE FOR GFR 0.75 MG/DL (0.70-1.30); GLOMERULAR FILTRATION RATE > 60.0 (>56); GLUCOSE, FASTING 39 MG/DL (70-100); MAGNESIUM LEVEL 1.7 MG/DL (1.8-2.4); POTASSIUM SERUM 4.4 MEQ/L (3.5-5.1); SODIUM LEVEL 138 MEQ/L (136-145); TOTAL PROTEIN 5.8 GM/DL (6.4-8.2)
== END 2020-01-15 11:50 | disposition home or self-care (01) | DRG 301 ==
LOC: M MS5PR 07:20
PROVIDERS: ADMIT Orthopaedic Surgery; ATTEND Orthopaedic Surgery
PROC: 0SR903Z Replacement of Right Hip Joint with Ceramic Synthetic Substitute, Open Approach (ICD-10-PCS; principal; 2020-01-13)
DX: M16.11 Unilateral primary osteoarthritis, right hip (principal); D69.6 Thrombocytopenia, unspecified; K86.1 Other chronic pancreatitis; Z79.899 Other long term (current) drug therapy; E11.9 Type 2 diabetes mellitus without complications; I25.10 Atherosclerotic heart disease of native coronary artery without angina pectoris; E78.5 Hyperlipidemia, unspecified

== ENCOUNTER → 2020-03-22 | Outpatient (CLI) | payer BC ==
[~2020-03-22] MED LIST changes: -ceFAZolin 2 GM/D5W 50 ML IV BAG (J0690 PER 500MG) As Ordered ONE
--- NOTE | 2020-03-22 13:56 | REP ---
INDICATION: ATHSCL EKLUTNA ARTERIES W/ CLAUDICATION BLAIR LEG COMPARISON: None. TECHNIQUE: Real time dao scale and color Doppler evaluation of the bilateral lower extremity arterial vasculature using linear high frequency transducer. FINDINGS: Dao scale and color images demonstrate moderate atheromatous plaquing throughout the visualized lower aorta, bilateral iliac arteries and bilateral lower extremity arteries. Doppler interrogation demonstrates bilateral triphasic and biphasic wave patterns with the exception of monophasic wave patterns through the right posterior tibial artery. Generalized decreased velocities are also noted which may be related to ectatic/aneurysmal changes to the aorta and iliac arteries. There is no focal area of discrete stenosis or occlusion through the lower extremities. Distal aorta measures 2.4 cm diameter with velocity at 26 cm/sec Right common iliac artery measures 2.7 x 2.3 cm diameter. Left common iliac artery measures 1.0 x 0.9 cm diameter. Right SOLO: 0.69 Left SOLO: 0.88 Peak systolic velocities (cm/sec) Right common iliac artery: 80 cm/sec. Left Common iliac artery: 95 cm/sec. Right external iliac artery: 125 cm/sec Left external iliac artery: 70 cm/sec Common femoral artery: Right 37 cm/sec; Left 65 cm/sec Profunda femoris: Right 40 cm/sec; Left 85 cm/sec SFA (proximal): Right 19 cm/sec; Left 46 cm/sec SFA (mid): Right 77 centimeters/seconds; Left 77 cm/sec SFA (distal): Right 32 cm/sec; Left 42 cm/sec Popliteal artery: Right 25 cm/sec; Left 28 cm/sec BRISSA (prox.): Right 117 cm/sec; Left 70 cm/sec Tibioperoneal trunk: Right 36 cm/sec; Left 36 cm/sec BROACH OPERATOR (prox.): Right 21 cm/sec; Left 106 cm/sec BROACH OPERATOR (distal): Right 13 cm/sec; Left 39 cm/sec BRISSA (distal): Right 30 cm/sec; Left 50 cm/sec IMPRESSION: 1. Moderate diffuse atherosclerotic changes without focal stenosis or occlusion identified. 2. Aneurysmal dilatation of the right common iliac artery. <Electronically signed by Tru Yi > 03/22/20 [id number]
== END ==
LOC: M RAD 11:31
PROVIDERS: ATTEND Physician Assistant
DX: I70.213 Atherosclerosis of native arteries of extremities with intermittent claudication, bilateral legs (principal); I72.3 Aneurysm of iliac artery

== ENCOUNTER → 2020-05-18 | Outpatient (CLI) | payer BC ==
[2020-05-18 09:58] LABS: BLOOD UREA NITROGEN 13 MG/DL (7-18); GLOMERULAR FILTRATION RATE > 60.0 (>56)
== END ==
LOC: M LAB 07:59
PROVIDERS: ATTEND Physician Assistant
DX: Z01.818 Encounter for other preprocedural examination (principal)

== ENCOUNTER → 2020-05-23 | Outpatient (CLI) | payer BC ==
[~2020-05-23] MED LIST changes: +ISOVUE-370 76% 100ML VIAL As Ordered ONE
--- NOTE | 2020-05-23 09:33 | REP ---
INDICATION: ANEURYSM OF ILIAC ARTERY ANEURYSM OF ART LOWER EXT COMPARISON: None TECHNIQUE: Axial contrast-enhanced images from the lung bases through the proximal femurs using 100 cc Isovue [address] angiographic technique. Coronal and sagittal reformations obtained as well as post processed images including 3D volume rendered CT angiogram of the aorta. This CT examination was performed using the following dose reduction techniques: Automated exposure control, adjustment of mA and/or kv according to the patient's size, and use of iterative reconstruction technique. FINDINGS: The abdominal aorta demonstrates moderate to significant primarily noncalcified mural thrombus and atheromatous changes with small areas of calcification and generalized ectasia measuring up to approximately 3.2 cm diameter with extension and aneurysmal dilatation of the right common iliac artery measuring up to 2.2 cm maximal diameter extending to the internal/external iliac bifurcation. The left common iliac artery is normal in caliber. An intraluminal web versus small early inferior abdominal aortic dissection cannot be differentiated (series 402; images 60-65). The major branch vessels including celiac axis, superior mesenteric artery, multiple bilateral renal arteries and inferior mesenteric artery are normal. Liver, spleen, and bilateral adrenal glands are normal. Evidence for prior cholecystectomy noted. Pancreatic calcifications consistent with chronic pancreatitis. Congenital horseshoe kidney noted without obvious further abnormality or hydronephrosis. The enteric system demonstrates colonic and sigmoid diverticulosis without bowel obstruction or acute inflammatory process. Normal terminal ileum and appendix are identified in the right lower quadrant. Pelvis demonstrates grossly normal bladder with prostatomegaly. No ascites. No free air. No obvious adenopathy. IMPRESSION: 1. Atherosclerotic changes and ectatic appearance to the abdominal aorta with possible early focal area of dissection. 2. Aneurysmal dilatation to the right common iliac artery. 3. Congenital horseshoe kidney. 4. Prostatomegaly. 5. Further nonacute chronic findings as described above. <Electronically signed by Tru Yi > 05/23/20 0520
== END ==
LOC: M RAD 07:32
PROVIDERS: ATTEND Physician Assistant
DX: I72.3 Aneurysm of iliac artery (principal); I72.4 Aneurysm of artery of lower extremity
CPT/HCPCS: 74174; Q9967

== ENCOUNTER → 2020-06-15 | Outpatient (REF) | payer BC ==
[~2020-06-15] MED LIST changes: -ISOVUE-370 76% 100ML VIAL As Ordered ONE
== END ==
LOC: M LAB REF 14:42
PROVIDERS: ATTEND Physician Assistant
DX: L82.1 Other seborrheic keratosis (principal)

== ENCOUNTER → 2020-08-20 | Outpatient (REF) | payer BC ==
[2020-08-20 15:23] LABS: PERCENT SATURATION 32.1 % (19.7-50.0)
== END ==
LOC: M LAB REF 12:54
PROVIDERS: ATTEND Internal Medicine
DX: D50.9 Iron deficiency anemia, unspecified (principal)

== ENCOUNTER → 2021-01-21 | Outpatient (REF) | payer BC ==
[2021-01-21 12:49] LABS: PERCENT SATURATION 27.3 % (19.7-50.0)
== END ==
LOC: M LAB REF 11:44
PROVIDERS: ATTEND Internal Medicine
DX: D50.9 Iron deficiency anemia, unspecified (principal)

== ENCOUNTER → 2021-04-16 | Outpatient (CLI) | payer BC ==
[2021-04-16 08:52] LABS: BLOOD UREA NITROGEN 11 MG/DL (7-18); CREATININE FOR GFR 0.62 MG/DL (0.70-1.30); GLOMERULAR FILTRATION RATE > 60.0 (>56)
== END ==
LOC: M LAB 07:52
PROVIDERS: ATTEND Surgery Vascular Surgery
DX: I72.3 Aneurysm of iliac artery (principal); I72.4 Aneurysm of artery of lower extremity; I70.203 Unspecified atherosclerosis of native arteries of extremities, bilateral legs

== ENCOUNTER → 2021-04-22 | Outpatient (CLI) | payer BC ==
[~2021-04-22] MED LIST changes: +ISOVUE-370 76% 100ML VIAL As Ordered ONE
== END ==
LOC: M RAD 14:02
PROVIDERS: ATTEND Surgery Vascular Surgery
DX: I70.203 Unspecified atherosclerosis of native arteries of extremities, bilateral legs (principal); I72.3 Aneurysm of iliac artery; I72.4 Aneurysm of artery of lower extremity
CPT/HCPCS: 75635; Q9967

== ENCOUNTER → 2021-11-14 | Outpatient (CLI) | payer BC ==
[~2021-11-14] MED LIST changes: -ISOVUE-370 76% 100ML VIAL As Ordered ONE
== END ==
LOC: M SOG 08:13
PROVIDERS: ATTEND Orthopaedic Surgery
DX: M25.561 Pain in right knee (principal)

== ENCOUNTER → 2021-12-26 | Outpatient (REF) | payer BC ==
[2021-12-26 12:38] LABS: PERCENT SATURATION 41.5 % (19.7-50.0)
== END ==
LOC: M LAB REF 12:03
PROVIDERS: ATTEND Internal Medicine
DX: D50.9 Iron deficiency anemia, unspecified (principal)

== ENCOUNTER → 2022-02-05 | Outpatient (REF) | payer BC | LOC: M LAB REF 16:02 | PROVIDERS: ATTEND Internal Medicine | DX: M25.50 Pain in unspecified joint (principal) ==

== ENCOUNTER → 2022-02-17 | Outpatient (REF) | payer BC | LOC: M LAB REF 16:12 | PROVIDERS: ATTEND Internal Medicine | DX: M25.50 Pain in unspecified joint (principal) ==

== ENCOUNTER → 2022-05-21 | Outpatient (CLI) | payer BC | LOC: M RAD 06:31 | PROVIDERS: ATTEND Surgery Vascular Surgery | DX: I70.213 Atherosclerosis of native arteries of extremities with intermittent claudication, bilateral legs (principal); I71.40 Abdominal aortic aneurysm, without rupture, unspecified; I74.5 Embolism and thrombosis of iliac artery ==

== ENCOUNTER → 2022-05-29 | Outpatient (REF) | payer BC ==
[2022-05-29 19:45] LABS: PERCENT SATURATION 28.2 % (19.7-50.0)
== END ==
LOC: M LAB REF 17:18
PROVIDERS: ATTEND Internal Medicine
DX: D50.9 Iron deficiency anemia, unspecified (principal)

== ENCOUNTER 2022-06-16 16:25 | Emergency (ER) | payer BC ==
[~2022-06-16] VITALS: Ht 175.3 cm; Wt 53.7 kg
[2022-06-16 20:00] VITALS: BP 148/88
[2022-06-17] MEDS ORDERED: ACET325C5 PO (08:52)
[2022-06-17] MEDS ORDERED: ONDA4TAB6 PO (15:08)
== END 2022-06-16 23:15 | disposition left against medical advice (07) ==
LOC: M ED 16:25
DX: Z53.21 Procedure and treatment not carried out due to patient leaving prior to being seen by health care provider (principal)

== ENCOUNTER 2022-06-17 08:25 | Emergency (ER) | payer BC ==
[~2022-06-17] VITALS: Ht 175.3 cm; Wt 49.5 kg
[2022-06-17] MEDS ORDERED: ACET325C5 PO (08:52)
[2022-06-17 10:33] LABS: BASO % 0.3 % (0.0-1.0); EOS # 0.1 10^3/uL (0.0-0.5); EOS % 0.6 % (0.0-3.0); HEMATOCRIT 50.9 % (42.0-52.0); HEMOGLOBIN 17.4 g/dl (13.5-17.5); LYMPH # 1.5 10^3/uL (1.5-5.0); LYMPH % 19.4 % (24.0-44.0); MEAN CORPUSCULAR HEMOGLOBIN 34.3 pg (27.0-33.0); MEAN CORPUSCULAR HGB CONC 34.2 g/dl (32.0-36.5); MEAN CORPUSCULAR VOLUME 100.2 fl (80.0-96.0); MONO # 0.7 10^3/uL (0.0-0.8); MONO % 8.7 % (2.0-8.0); NEUTROPHILS # 5.5 10^3/uL (1.5-8.5); NEUTROPHILS % 70.7 % (36.0-66.0); PLATELET COUNT, AUTOMATED 210 10^3/uL (150-450); RED BLOOD COUNT 5.08 10^6/uL (4.30-6.10); WHITE BLOOD COUNT 7.7 10^3/uL (4.0-10.0)
[2022-06-17 10:56] LABS: LIPASE 32 U/L (12-53)
[2022-06-17 10:58] LABS: ALBUMIN 3.6 G/DL (3.2-5.2); ALKALINE PHOSPHATASE 100 U/L (46-116); ALT/SGPT 18 U/L (7.0-40); AST/SGOT 16 U/L (<34); BILIRUBIN,DIRECT 0.2 MG/DL (<0.4); BILIRUBIN,TOTAL 0.4 MG/DL (0.3-1.2); BLOOD UREA NITROGEN 26 MG/DL (9-23); CALCIUM LEVEL 9.1 MG/DL (8.5-10.1); CARBON DIOXIDE LEVEL 26 MMOL/L (20-31); CHLORIDE LEVEL 99 MMOL/L (98-107); GLOMERULAR FILTRATION RATE > 60.0 (>56); GLUCOSE, FASTING 159 MG/DL (60-100); POTASSIUM SERUM 4.6 MMOL/L (3.5-5.1); SODIUM LEVEL 135 MMOL/L (136-145); TOTAL PROTEIN 6.8 G/DL (5.7-8.2)
[2022-06-17] MEDS ORDERED: KETOROLAC 30 MG/ML 1ML VIAL IV ONE (12:05)
[2022-06-17] MEDS ORDERED: NS 1,000 ML IV ONE (12:05)
[2022-06-17] MEDS ORDERED: ONDANSETRON 4MG 2ML VIAL IV ONE (12:05)
[2022-06-17] MEDS ORDERED: ISOVUE-370 76% 100ML VIAL As Ordered ONE (12:10)
[2022-06-17 13:14] VITALS: BP 133/75
[2022-06-17 13:22] LABS: MAGNESIUM LEVEL 1.9 MG/DL (1.8-2.4)
[2022-06-17 13:23] LABS: CK-MB VALUE MASS 1.1 NG/ML (<3.6); PHOSPHORUS LEVEL 3.6 MG/DL (2.5-4.9)
[2022-06-17 13:24] LABS: HEMOGLOBIN A1c 8.4 % (4.0-6.0); MB/CK RELATIVE INDEX 2.97 (< OR =4)
[2022-06-17] MEDS ORDERED: ONDA4TAB6 PO (15:08)
== END 2022-06-17 15:24 | disposition home or self-care (01) ==
LOC: M ED 08:25
DX: K86.89 Other specified diseases of pancreas (principal); R11.0 Nausea; R00.2 Palpitations; E11.9 Type 2 diabetes mellitus without complications; E78.5 Hyperlipidemia, unspecified; K21.9 Gastro-esophageal reflux disease without esophagitis; F17.200 Nicotine dependence, unspecified, uncomplicated; Z88.8 Allergy status to other drugs, medicaments and biological substances; Z79.899 Other long term (current) drug therapy; Z90.49 Acquired absence of other specified parts of digestive tract; K57.30 Diverticulosis of large intestine without perforation or abscess without bleeding; K86.1 Other chronic pancreatitis; Z79.4 Long term (current) use of insulin
CPT/HCPCS: 74177; 80048; 80076; 81000; 81015; 82010; 82550; 82553; 83036; 83605; 83690; 83735; 83930; 84100; 84484; 85025; 93005; 96361; 96374; 99284; J2405

== ENCOUNTER → 2022-06-20 | Outpatient (REF) | payer BC ==
[~2022-06-20] MED LIST changes: +ACET325C5 PO; +ONDA4TAB6 PO
[2022-06-20 13:35] LABS: CA19-9 TUMOR MARKER,CARBOHYDRA 14.5 U/ML (<35.0)
== END ==
LOC: M LAB REF 12:15
PROVIDERS: ATTEND Internal Medicine
DX: K86.0 Alcohol-induced chronic pancreatitis (principal); D48.7 Neoplasm of uncertain behavior of other specified sites; R10.816 Epigastric abdominal tenderness

== ENCOUNTER → 2022-06-30 | Outpatient (CLI) | payer BC | LOC: M RAD 06:30 | PROVIDERS: ATTEND Internal Medicine | DX: Z87.891 Personal history of nicotine dependence (principal) ==

== ENCOUNTER 2022-07-23 05:23 | Emergency (ER) | payer BC ==
[~2022-07-23] VITALS: Ht 175.3 cm; Wt 54.1 kg
[~2022-07-23 05:23] MED LIST changes: -NITR0.4S14; +NITR0.4S14 SL
[2022-07-23] MEDS ORDERED: ALBUTEROL 90 MCG/ACT 8GM HFA INHALER INH ONE (06:55)
[2022-07-23] MEDS ORDERED: ASPIRIN 81MG CHEW TABLET PO ONE (06:55)
[2022-07-23] MEDS ORDERED: ISOVUE-370 76% 100ML VIAL As Ordered ONE (07:14)
[2022-07-23 07:51] LABS: BASO % 0.2 % (0.0-1.0); EOS % 0.7 % (0.0-3.0); HEMATOCRIT 40.3 % (42.0-52.0); HEMOGLOBIN 13.9 g/dl (13.5-17.5); LYMPH # 1.5 10^3/uL (1.5-5.0); LYMPH % 26.7 % (24.0-44.0); MEAN CORPUSCULAR HEMOGLOBIN 33.5 pg (27.0-33.0); MEAN CORPUSCULAR HGB CONC 34.5 g/dl (32.0-36.5); MEAN CORPUSCULAR VOLUME 97.1 fl (80.0-96.0); MONO # 0.5 10^3/uL (0.0-0.8); MONO % 8.3 % (2.0-8.0); NEUTROPHILS # 3.6 10^3/uL (1.5-8.5); NEUTROPHILS % 63.6 % (36.0-66.0); PLATELET COUNT, AUTOMATED 154 10^3/uL (150-450); RED BLOOD COUNT 4.15 10^6/uL (4.30-6.10); WHITE BLOOD COUNT 5.7 10^3/uL (4.0-10.0)
[2022-07-23 08:24] LABS: INR 0.92; PARTIAL THROMBOPLASTIN TIME 22.6 SECONDS (24.8-34.2); PROTHROMBIN TIME 12.6 SECONDS (12.5-14.5)
[2022-07-23 08:33] LABS: FREE T4 1.05 NG/DL (0.89-1.76); THYROID STIMULATING HORMONE 1.497 uIU/ML (0.55-4.78)
[2022-07-23 09:10] LABS: LIPASE 24 U/L (12-53)
[2022-07-23 09:11] LABS: C REACTIVE PROTEIN QUANTITATIV < 0.40 MG/DL (<1.0)
[2022-07-23 09:12] LABS: CPK CREATINE PHOSPHOKINASE 28 U/L (46-171)
[2022-07-23 09:15] LABS: ALBUMIN 3.1 G/DL (3.2-5.2); ALKALINE PHOSPHATASE 96 U/L (46-116); ALT/SGPT 36 U/L (7.0-40); AST/SGOT 19 U/L (<34); BILIRUBIN,DIRECT 0.2 MG/DL (<0.4); BILIRUBIN,TOTAL 0.6 MG/DL (0.3-1.2); CK-MB VALUE MASS < 1.0 NG/ML (<3.6); MB/CK RELATIVE INDEX 3.57 (< OR =4); TOTAL PROTEIN 5.8 G/DL (5.7-8.2)
[2022-07-23 09:27] LABS: ERYTHROCYTE SEDIMENTATION RATE 18 mm/hr (0-20)
[2022-07-23 09:30] LABS: CK-MB VALUE MASS < 1.0 NG/ML (<3.6)
[2022-07-23 09:32] LABS: CPK CREATINE PHOSPHOKINASE 21 U/L (46-171); MB/CK RELATIVE INDEX 4.76 (< OR =4)
[2022-07-23 11:11] LABS: RSV AMPLIFICATION NEGATIVE (NEGATIVE)
[2022-07-23 11:14] LABS: CK-MB VALUE MASS < 1.0 NG/ML (<3.6)
[2022-07-23 11:21] LABS: CPK CREATINE PHOSPHOKINASE 26 U/L (46-171); MB/CK RELATIVE INDEX 3.84 (< OR =4)
[2022-07-23] MEDS ORDERED: FERR325T18 PO (11:31)
[2022-07-23] MEDS ORDERED: VITMTA PO (11:31)
[2022-07-23] MEDS ORDERED: ATOR40TA75 PO (11:31)
[2022-07-23] MEDS ORDERED: HOME MED LIST COMPLETE! XX SCH (11:35)
[2022-07-23 13:13] LABS: HEMATOCRIT 38.1 % (42.0-52.0); HEMOGLOBIN 13.3 g/dl (13.5-17.5)
[2022-07-23] MEDS ORDERED: VENTAER INH (14:01)
[2022-07-23 14:23] VITALS: BP 107/63
== END 2022-07-23 14:35 | disposition home or self-care (01) ==
LOC: M ED 05:23
DX: U07.1 COVID-19 (principal); J06.9 Acute upper respiratory infection, unspecified; R07.9 Chest pain, unspecified; J43.9 Emphysema, unspecified; R93.5 Abnormal findings on diagnostic imaging of other abdominal regions, including retroperitoneum; K86.1 Other chronic pancreatitis; J45.909 Unspecified asthma, uncomplicated; I71.40 Abdominal aortic aneurysm, without rupture, unspecified; I25.10 Atherosclerotic heart disease of native coronary artery without angina pectoris; E11.9 Type 2 diabetes mellitus without complications; Z79.4 Long term (current) use of insulin; I10 Essential (primary) hypertension; E78.5 Hyperlipidemia, unspecified; K21.9 Gastro-esophageal reflux disease without esophagitis; Z95.5 Presence of coronary angioplasty implant and graft; F17.200 Nicotine dependence, unspecified, uncomplicated; Z86.16 Personal history of COVID-19; I30.9 Acute pericarditis, unspecified; Z90.89 Acquired absence of other organs; Z88.8 Allergy status to other drugs, medicaments and biological substances; Z79.82 Long term (current) use of aspirin; Z79.51 Long term (current) use of inhaled steroids; Z79.899 Other long term (current) drug therapy

== ENCOUNTER → 2024-02-02 | Outpatient (CLI) | payer BC ==
[~2024-02-02] MED LIST changes: +ATOR40TA75 PO; +FERR325T18 PO; +INSU100I6; -LEVE1INJ5; +ONDA-282 PO; -ONDA4TAB6 PO; -ROPI1TAB3 PO; +ROPI1TAB73 PO; +VENTAER INH; +VITMTA PO
== END ==
LOC: M RAD 07:09
PROVIDERS: ATTEND Internal Medicine
DX: F17.210 Nicotine dependence, cigarettes, uncomplicated (principal)

== ENCOUNTER → 2024-05-31 | Outpatient (CLI) | payer BC ==
[~2024-05-31] MED LIST changes: +GLIP10TA15 PO; -GLIP10TA6 PO
== END ==
LOC: M PLALAB 09:17
PROVIDERS: ATTEND Physician Assistant
DX: R97.20 Elevated prostate specific antigen [PSA] (principal)

== ENCOUNTER → 2024-07-14 | Outpatient (REF) | payer BC ==
[2024-07-14 12:20] LABS: INR 0.98; PROTHROMBIN TIME 13.2 SECONDS (12.5-14.5)
== END ==
LOC: M LAB REF 12:05
PROVIDERS: ATTEND Internal Medicine
DX: Z01.818 Encounter for other preprocedural examination (principal); Z79.01 Long term (current) use of anticoagulants

== ENCOUNTER → 2024-07-18 | Outpatient (CLI) | payer BC | LOC: M RAD 07:24 | PROVIDERS: ATTEND Urology | DX: R97.20 Elevated prostate specific antigen [PSA] (principal) ==

== ENCOUNTER → 2024-07-29 | Outpatient (REF) | payer BC ==
[~2024-07-29] MED LIST changes: +CREO12CA PO; +GLUC1AUT2 SC; +MULT-90 PO; +TRES1INJ2 SC; +TYLE650T38 PO
== END ==
LOC: M LAB REF 12:17
PROVIDERS: ATTEND Internal Medicine
DX: Z01.818 Encounter for other preprocedural examination (principal)

== ENCOUNTER 2024-08-08 10:34 | Day surgery (SDC) | payer BC ==
[~2024-08-08] VITALS: Ht 175.3 cm; Wt 62.1 kg
[2024-08-08] MEDS ORDERED: LR 1,000 ML IV SCH ×2 (11:10→12:50)
[2024-08-08] MEDS ORDERED: ONDANSETRON 4MG 2ML VIAL As Ordered ONE (11:39)
[2024-08-08] MEDS ORDERED: LIDOCAINE 2% 100MG/5ML SDV (FOR ANES.) As Ordered ONE (11:39)
[2024-08-08] MEDS ORDERED: propofoL 200 MG/20 ML VIAL As Ordered ONE (11:39)
[2024-08-08] MEDS: CIPROFLOXACIN 400 MG in IV 1 EA IV ONE (12:00)
[2024-08-08] MEDS ORDERED: HYDROMORPHONE HCL 0.5 MG/ 0.5 ML SYRINGE IV PRN (12:50)
[2024-08-08] MEDS ORDERED: ONDANSETRON 4MG 2ML VIAL IV PRN (12:50)
[2024-08-08] MEDS ORDERED: fentaNYL 100 MCG/2 ML INJECTION IV PRN (12:50)
[2024-08-08] MEDS ORDERED: oxyCODONE 5MG TAB PO PRN (12:50)
[2024-08-08] MEDS: cefTRIAXone SOD 1 GM in DEXTROSE 5% (D5W) ADV/MINI-BAG 50 ML IV ONE (13:20)
[2024-08-08 13:56] VITALS: BP 133/67; TEMP 97.5; O2SAT 100
== END 2024-08-08 14:09 | disposition home or self-care (01) ==
LOC: M SDC 10:34
PROVIDERS: ATTEND Urology
DX: C61 Malignant neoplasm of prostate (principal); K86.0 Alcohol-induced chronic pancreatitis; E11.9 Type 2 diabetes mellitus without complications; I25.10 Atherosclerotic heart disease of native coronary artery without angina pectoris; G25.81 Restless legs syndrome; Z79.4 Long term (current) use of insulin; Z79.899 Other long term (current) drug therapy; Z79.82 Long term (current) use of aspirin; F17.210 Nicotine dependence, cigarettes, uncomplicated; Z95.5 Presence of coronary angioplasty implant and graft; Z90.49 Acquired absence of other specified parts of digestive tract; Z88.5 Allergy status to narcotic agent; Z88.8 Allergy status to other drugs, medicaments and biological substances; K21.9 Gastro-esophageal reflux disease without esophagitis
CPT/HCPCS: 55700; 76872; G0416; J0696; J0744; J2405

== ENCOUNTER 2024-12-01 11:54 | Day surgery (SDC) | payer BC ==
[~2024-12-01] VITALS: Ht 175.3 cm; Wt 55.3 kg
[~2024-12-01 11:54] MED LIST changes: +LIDOCAINE 2% 100 MG/5 ML SDV (FOR ANES.) As Ordered ONE; +OXYC1TAB23 PO
[2024-12-01 12:52] VITALS: TEMP 97.8
[2024-12-01 13:06] VITALS: BP 118/77; O2SAT 100
== END 2024-12-01 13:05 | disposition home or self-care (01) ==
LOC: M OPP 11:54
PROVIDERS: ATTEND Surgery
DX: K57.30 Diverticulosis of large intestine without perforation or abscess without bleeding (principal); K62.89 Other specified diseases of anus and rectum; K52.9 Noninfective gastroenteritis and colitis, unspecified; Z95.5 Presence of coronary angioplasty implant and graft; Z88.8 Allergy status to other drugs, medicaments and biological substances; Z79.4 Long term (current) use of insulin; Z79.891 Long term (current) use of opiate analgesic; Z79.899 Other long term (current) drug therapy; F17.210 Nicotine dependence, cigarettes, uncomplicated

== ENCOUNTER → 2024-12-14 | Outpatient (CLI) | payer BC ==
[~2024-12-14] MED LIST changes: -LIDOCAINE 2% 100 MG/5 ML SDV (FOR ANES.) As Ordered ONE
== END ==
LOC: M RAD 07:52
PROVIDERS: ATTEND Internal Medicine Cardiovascular Disease
DX: I73.9 Peripheral vascular disease, unspecified (principal)

== ENCOUNTER → 2024-12-14 | Outpatient (CLI) | payer BC | LOC: M LAB 07:55 | PROVIDERS: ATTEND Urology | DX: C61 Malignant neoplasm of prostate (principal) ==

== ENCOUNTER → 2024-12-16 | Outpatient (CLI) | payer BC ==
[2024-12-16 10:12] LABS: CREATININE FOR GFR 0.57 MG/DL (0.70-1.30); GLOMERULAR FILTRATION RATE > 90.0 (>49)
== END ==
LOC: M LAB 09:00
PROVIDERS: ATTEND Physician Assistant
DX: R19.7 Diarrhea, unspecified (principal); R63.4 Abnormal weight loss

== ENCOUNTER → 2024-12-19 | Outpatient (CLI) | payer BC ==
[~2024-12-19] MED LIST changes: +ISOVUE-370 76% 100 ML VIAL As Ordered ONE
== END ==
LOC: M RAD 08:43
PROVIDERS: ATTEND Physician Assistant
DX: R19.7 Diarrhea, unspecified (principal); R63.4 Abnormal weight loss

== ENCOUNTER → 2025-04-07 | Outpatient (REF) | payer BC ==
[~2025-04-07] MED LIST changes: -ISOVUE-370 76% 100 ML VIAL As Ordered ONE
[2025-04-13 06:08] LABS: INSULIN ANTIBODY < 0.4 U/mL (<0.4)
[2025-04-13 19:28] LABS: ZNT8 ABS < 10 U/mL (<15)
[2025-04-14 22:37] LABS: GAD-65 AUTOANTIBODY < 5 IU/mL (<5)
== END ==
LOC: M LAB REF 12:30
PROVIDERS: ATTEND Internal Medicine
DX: E11.9 Type 2 diabetes mellitus without complications (principal); K86.0 Alcohol-induced chronic pancreatitis; I10 Essential (primary) hypertension